=== PATIENT | male | born 1995 | race Caucasian/White ===

== ENCOUNTER 2018-10-31 18:08 | Emergency (ER) | payer SELFPAY ==
[2018-10-31] MEDS ORDERED: Fluorescein 0.6 MG Ophth Strip EYELF ONE (19:16)
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
== END 2018-10-31 20:35 | disposition home or self-care (01) ==
LOC: JD.ED 18:08
DX: S05.02XA Injury of conjunctiva and corneal abrasion without foreign body, left eye, initial encounter (principal); X58.XXXA Exposure to other specified factors, initial encounter
CPT/HCPCS: 65222; 99283

== ENCOUNTER 2018-12-22 22:37 | Emergency (ER) | payer SELFPAY ==
[2018-12-22] MEDS ORDERED: Proparacaine 0.5% Ophth Soln 15 ML Bottle EYEBOTH ONE (22:48)
[2018-12-22] MEDS ORDERED: Fluorescein 0.6 MG Ophth Strip EYEBOTH ONE (22:49)
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
[2018-12-22] MEDS ORDERED: Ciprofloxacin 0.3% Ophth Soln 5 ML Bottle EYEBOTH ONE (23:15)
[2018-12-22] MEDS ORDERED: Acetaminophen/HYDROcodone 325-5 MG Tab PO ONE (23:22)
== END 2018-12-22 23:31 | disposition home or self-care (01) ==
LOC: JD.ED 22:37
DX: H16.133 Photokeratitis, bilateral (principal); F17.210 Nicotine dependence, cigarettes, uncomplicated
CPT/HCPCS: 99283; A9270

== ENCOUNTER 2019-05-09 00:29 | Emergency (ER) | payer SELFPAY ==
[2019-05-09] MEDS ORDERED: Proparacaine 0.5% Ophth Soln 15 ML Bottle EYEBOTH ONE (01:12)
[2019-05-09] MEDS ORDERED: Fluorescein 1 MG Ophth Strip EYEBOTH ONE (01:14)
[2019-05-09] MEDS ORDERED: Fluorescein 1 MG Ophth Strip ONE (01:16)
[2019-05-09] MEDS ORDERED: Acetaminophen/HYDROcodone 325-5 MG Tab PO ONE (01:26)
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
[2019-05-09] MEDS ORDERED: Erythromycin Base 0.5% Ophth Oint 1 GM Tube EYEBOTH ONE (01:32)
== END 2019-05-09 01:48 | disposition home or self-care (01) ==
LOC: JD.ED 00:29
DX: H16.133 Photokeratitis, bilateral (principal); Z88.8 Allergy status to other drugs, medicaments and biological substances
CPT/HCPCS: 99283; A9270

== ENCOUNTER 2019-07-17 23:16 | Emergency (ER) | payer OTHER ==
[2019-07-17] MEDS ORDERED: Fluorescein 1 MG Ophth Strip EYEBOTH ONE (23:33)
[2019-07-17] MEDS ORDERED: Proparacaine 0.5% Ophth Soln 15 ML Bottle EYEBOTH STA (23:37)
[2019-07-17] MEDS ORDERED: Erythromycin Base 0.5% Ophth Oint 1 GM Tube EYELF STA (23:50)
[2019-07-17] MEDS ORDERED: Erythromycin Base 0.5% Ophth Oint 1 GM Tube EYERT STA (23:51)
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
== END 2019-07-18 00:05 | disposition home or self-care (01) ==
LOC: JD.ED 23:16
DX: H16.133 Photokeratitis, bilateral (principal); F17.210 Nicotine dependence, cigarettes, uncomplicated; Z88.8 Allergy status to other drugs, medicaments and biological substances; Z91.048 Other nonmedicinal substance allergy status
CPT/HCPCS: 99283; A9270

== ENCOUNTER 2020-01-01 23:26 | Emergency (ER) | payer MEDICAID, OTHER ==
--- NOTE | 2020-01-01 23:52 | EDM.PDOC ---
ED HPI GENERAL MEDICAL PROBLEM - General Chief Complaint: General Stated Complaint: LEFT SIDE INJURY Time Seen by Provider: 01/01/20 23:36 Source of Information: Reports: Patient History Limitations: Reports: No Limitations - History of Present Illness INITIAL COMMENTS - FREE TEXT/NARRATIVE: Mr. Hagan is a very pleasant 24-year-old man with no chronic medical problems, who now presents the ED with anterior left rib pain that he states was caused by falling down some stairs Wednesday night, 12/30/2019. He states that he was carrying a dresser upstairs, by himself, when his dog caused him to trip and fall. He states that he fell down about 9 steps, with the bottom 3 steps being concrete. He was not subsequently struck by the dresser. He states that pain in the area is made worse with inspiration, or with lying supine. He states that he is otherwise uninjured. No prior left rib injury. The patient states that he has had some relief by using a lidocaine patch and Tylenol. The patient denies recent fever, chills, sore throat, ear pain, nasal or sinus congestion, cough, dyspnea, chest pain, palpitations, nausea, vomiting, constipation, diarrhea, abdominal pain, urinary symptoms, recent weight gain or weight loss, recent bloody bowel movements or black bowel movements, recent joint aches, headaches, or rashes. Here in the ED, the patient is found to be hemodynamically stable, afebrile, saturating at 99% on room air. The patient does not have a PCP. Left Thoracic Pain Score (Numeric/FACES): 8 - Related Data Allergies Allergy/AdvReac Type Severity Reaction Status Date / Time citric acid Allergy Severe Facial Verified 01/01/20 23:36 Swelling diphenhydramine Allergy Severe Itching Verified 01/01/20 23:36 [From Benadryl] Home Meds: Home Meds Orphenadrine [Norflex] 1 tab PO Q12H PRN #14 tab 01/02/20 [Rx] Past Medical History Gastrointestinal History: Reports: Hemorrhoids Social & Family History - Family History Family Medical History: Noncontributory - Tobacco Use Smoking Status *Q: Current Every Day Smoker Tobacco Use Within Last Twelve Months: Vaping (nicotine) Years of Tobacco use: 10 Packs/Tins Daily: 0.1 - Caffeine Use Caffeine Use: Reports: None - Alcohol Use Alcohol Use History: No - Recreational Drug Use Recreational Drug Use: No - Living Situation & Occupation Living situation: Reports: Single, with Significant Other (Girlfriend + her daughter) Occupation: Unemployed ED ROS GENERAL - Review of Systems Review Of Systems: Comprehensive ROS is negative, except as noted in HPI. ED EXAM, GENERAL - Physical Exam Exam: See Below Exam Limited By: No Limitations General Appearance: Alert, WD/WN, No Apparent Distress Eye Exam: Bilateral Eye: EOMI, Normal Inspection Ears: Normal External Exam, Hearing Grossly Normal Nose: Normal Inspection Throat/Mouth: Normal Inspection, Normal Lips, Normal Voice, No Airway Compromise Head: Atraumatic, Normocephalic Neck: Normal Inspection, Full Range of Motion Respiratory/Chest: No Respiratory Distress, Lungs Clear, Normal Breath Sounds, No Accessory Muscle Use, Other (No visible abnormality to the area of pain on the left anterior ribs, such as swelling, erythema, ecchymosis, or abrasion, however, the patient has considerable tenderness to palpation in that area). No : Decreased Breath Sounds, Crackles, Rhonchi, Wheezing, Stridor, Pleural Rub, Prolonged Expiration Cardiovascular: Normal Peripheral Pulses, Regular Rate, Rhythm, No Edema, No Gallop, No JVD, No Murmur, No Rub Peripheral Pulses: 4+: Radial (L), Radial (R) GI/Abdominal: Normal Bowel Sounds, Soft, Non-Tender, No Organomegaly, No Distention, No Abnormal Bruit, No Mass (Male) Exam: Deferred Rectal (Males) Exam: Deferred Back Exam: Normal Inspection, Full Range of Motion, NT Extremities: Normal Inspection, Normal Range of Motion, No Pedal Edema, Normal Capillary Refill Neurological: Alert, Oriented, Normal Cognition, No Motor/Sensory Deficits Psychiatric: Normal Affect Skin Exam: Warm, Dry, Intact, Normal Color, No Rash Course - Vital Signs Last Recorded V/S: Last Vital Signs Temp 36.8 C 01/01/20 23:34 Pulse 100 01/01/20 23:34 Resp 16 01/01/20 23:34 BP 135/84 01/01/20 23:34 Pulse Ox 99 01/01/20 23:34 - Orders/Labs/Meds Orders: Active Orders 24 hr Category Date Time Status Chest 2V [CR] Stat Exams 01/01/20 23:46 Ordered Meds: Medications Discontinued Medications Generic Name Dose Route Start Last Admin Trade Name Jordanq PRN Reason Stop Dose Admin Ibuprofen 600 mg 01/02/20 00:04 Motrin PO 01/02/20 00:05 ONETIME ONE Orphenadrine Citrate 100 mg 01/02/20 00:02 Norflex PO 01/02/20 00:03 ONETIME STA - Re-Assessments/Exams Free Text/Narrative Re-Assessment/Exam: 01/01/20 23:47 I have ordered a chest x-ray to evaluate for evidence of rib fractures, including a hemothorax or pneumothorax. 01/02/20 00:01 Two-view chest radiograph appears to be grossly normal. The cardiac silhouette is within normal limits. No pulmonary vascular congestion. No pleural effusions. No focal infiltrate. No pneumothorax. Formal read per the Radiologist pending. 01/02/20 00:04 X-ray results discussed with the patient. Although there is no visible abnormality, I suspect that the patient contused his left ribs, and may have an underlying muscle spasm. I am therefore recommending that we start him on Norflex, along with [id number] ibuprofen. He can safely be discharged home. Departure - Departure Time of Disposition: 00:05 Disposition: Home, Self-Care 01 Condition: Good Clinical Impression: Contusion of rib on left side - Discharge Information *PRESCRIPTION DRUG MONITORING PROGRAM REVIEWED*: Not Applicable *COPY OF PRESCRIPTION DRUG MONITORING REPORT IN PATIENT ELISSA: Not Applicable Prescriptions: Orphenadrine [Norflex] 1 tab PO Q12H PRN #14 tab PRN Reason: Muscle Spasm Referrals: PCP,None [Primary Care Provider] - Forms: ED Department Discharge Additional Instructions: You were seen in the emergency room after falling down some steps on Wednesday night, injuring your left ribs. Work-up in the ER included a chest x-ray, which returned normal. No broken ribs , collapsed lung, or blood in your chest was found. Based on your history, physical exam, and ER chest x-ray results, you have most likely contused (bruised) your left ribs. You may also have a muscle spasm in the area. You have been started on the muscle relaxant Norflex, and a prescription for Norflex has been sent to the [facility] at [address] [place] [address] in [place]. Take 1 tablet of Norflex every 12 hours, as needed for rib pain, as prescribed. Norflex works well with ibuprofen. Take 3 tablets (600 mg) of [id number] ibuprofen up to every 8 hours, with food, as needed for discomfort. If any other problems, please do not hesitate to return to the ER. Sepsis Event Note - Evaluation Sepsis Screening Result: No Definite Risk - Focused Exam Vital Signs: Vital Signs Temp Pulse Resp BP Pulse Ox 01/01/20 23:34 36.8 C 100 16 135/84 99 Date Exam was Performed: 01/02/20 Time Exam was Performed: 00:12 - My Orders Last 24 Hours: My Active Orders 01/01/20 23:46 Chest 2V [CR] Stat - Assessment/Plan Last 24 Hours: My Active Orders 01/01/20 23:46 Chest 2V [CR] Stat
[2020-01-02] MEDS ORDERED: Orphenadrine 100 MG Tab.ER PO STA (00:02)
[2020-01-02] MEDS ORDERED: Ibuprofen 600 MG Tab PO ONE (00:04)
--- NOTE | 2020-01-02 05:33 | CR ---
Chest: 2 views of the chest were obtained. Comparison: No previous chest imaging. Heart size and mediastinum are normal. Lungs are clear with no acute parenchymal change. Bony structures are unremarkable. Impression: 1. Nothing acute is seen on 2 view chest x-ray. Diagnostic code #1 This report was dictated in MDT
== END 2020-01-02 00:20 | disposition home or self-care (01) ==
LOC: JD.ED 23:26
DX: S20.212A Contusion of left front wall of thorax, initial encounter (principal); F17.210 Nicotine dependence, cigarettes, uncomplicated; Z88.8 Allergy status to other drugs, medicaments and biological substances; W10.8XXA Fall (on) (from) other stairs and steps, initial encounter
CPT/HCPCS: 71046; 99283; A9270

== ENCOUNTER 2020-02-15 15:06 | Emergency (ER) | payer SELFPAY ==
--- NOTE | 2020-02-15 15:34 | EDM.PDOC ---
ED HPI GENERAL MEDICAL PROBLEM - General Chief Complaint: General Stated Complaint: HEMORROIDS Time Seen by Provider: 02/15/20 15:24 - History of Present Illness INITIAL COMMENTS - FREE TEXT/NARRATIVE: 24-year-old male presents the emergency room with a hemorrhoid. Patient states is been going on for the last several days. Interestingly he had very loose stools for several days prior to and during the onset of this. He has significant discomfort with this. He has difficulty with walking and sitting he does okay if he can sit to the side. He is used ibuprofen with minimal success with this. Prior to the watery stools the patient denies any hard stools or symptoms consistent with constipation. Rectal Pain Score (Numeric/FACES): 7 - Related Data Allergies Allergy/AdvReac Type Severity Reaction Status Date / Time citric acid Allergy Severe Facial Verified 01/01/20 23:36 Swelling diphenhydramine Allergy Severe Itching Verified 01/01/20 23:36 [From Benadryl] Home Meds: Home Meds Hydrocortisone [Anusol-HC] 30 gm RC ASDIRECTED #1 cream..g. 02/15/20 [Rx] Naproxen 500 mg PO Q12H #20 tablet 02/15/20 [Rx] Past Medical History - Past Health History Medical/Surgical History: Denies Medical/Surgical History HEENT History: Reports: Other (See Below) Other HEENT History: keratitis Gastrointestinal History: Reports: Hemorrhoids Social & Family History - Family History Family Medical History: Noncontributory - Caffeine Use Caffeine Use: Reports: None - Living Situation & Occupation Living situation: Reports: Single, with Significant Other (Girlfriend + her daughter) Occupation: Unemployed ED ROS GENERAL - Review of Systems Review Of Systems: See Below Constitutional: Reports: No Symptoms. Denies: Fever, Chills Respiratory: Reports: No Symptoms Cardiovascular: Reports: No Symptoms GI/Abdominal: Reports: Diarrhea (He had loose stools but no more than a couple a day. This was nonbloody.). Denies: Abdominal Pain, Black Stool, Bloody Stool, Constipation, Nausea, Vomiting ED EXAM, GENERAL - Physical Exam Exam: See Below Exam Limited By: No Limitations General Appearance: Alert, No Apparent Distress Respiratory/Chest: No Respiratory Distress, Lungs Clear, Normal Breath Sounds Cardiovascular: Regular Rate, Rhythm, No Edema, No Murmur GI/Abdominal: Normal Bowel Sounds, Soft, Non-Tender, No Organomegaly, No Distention Rectal (Males) Exam: Other (Has a single hemorrhoid external noted at the 4:30 position roughly 4-5 mm round very tender with palpation.) Neurological: Alert, Oriented, Normal Cognition Course - Vital Signs Last Recorded V/S: Last Vital Signs Temp 36.7 C 02/15/20 15:27 Pulse 84 02/15/20 15:27 Resp 20 02/15/20 15:27 BP 122/74 02/15/20 15: Pulse Ox 99 02/15/20 15:27 Departure - Departure Time of Disposition: 15:58 Disposition: Home, Self-Care 01 Clinical Impression: External hemorrhoid - Discharge Information Referrals: PCP,None [Primary Care Provider] - Forms: ED Department Discharge Additional Instructions: Return to the emergency room with any questions problems or worsening symptoms. Take the medications as directed and as we discussed the Naprosyn is take 1 with your morning meal and 1 with your evening meal. The hemorrhoid cream has a steroid in it use it at least 2 not more than 3 times a day for 7 to 10 days. Follow-up in the hospital clinic early this next week for recheck. Call to schedule an appointment [phone] Sepsis Event Note (ED) - Focused Exam Vital Signs: Vital Signs Temp Pulse Resp BP Pulse Ox 02/15/20 15:27 36.7 C 84 20 122/74 99
== END 2020-02-15 16:17 | disposition home or self-care (01) ==
LOC: JD.ED 15:06
DX: K64.4 Residual hemorrhoidal skin tags (principal); Z88.8 Allergy status to other drugs, medicaments and biological substances; Z91.018 Allergy to other foods
CPT/HCPCS: 99283

== ENCOUNTER 2020-03-09 11:02 | Emergency (ER) | payer MEDICAID ==
[2020-03-09] MEDS ORDERED: HYDROmorphone 1 MG/ML Syringe IVPUSH STA (11:18)
[2020-03-09] MEDS ORDERED: Ondansetron 4 MG/2 ML SDV IVPUSH ONE (11:18)
[2020-03-09] MEDS ORDERED: Sodium Chloride 0.9% 1,000 ML IV ONE (11:19)
[2020-03-09] MEDS ORDERED: Sodium Chloride 0.9% 10 ML Syringe FLUSH PRN ×2 (11:20→11:43)
--- NOTE | 2020-03-09 11:37 | EDM.PDOC ---
ED HPI GENERAL MEDICAL PROBLEM - General Chief Complaint: Flank Pain Stated Complaint: [facility] Time Seen by Provider: 03/09/20 11:18 Source of Information: Reports: Patient, RN Notes Reviewed History Limitations: Reports: No Limitations - History of Present Illness INITIAL COMMENTS - FREE TEXT/NARRATIVE: Patient is a 24-year-old male who is brought in by [place] [facility] for the evaluation of his bilateral abdomen pain. Patient states that he was woke up in the middle the night last night, as he felt like he had to pee, so he went to the bathroom, urinated, when he felt like he had the urge to have a bowel movement so he sat on the toilet, nothing happened he got up, and states that he had a very sudden sharp intense pain in the right flank/right lower quadrant area of his abdomen. Patient states that ever since then, there is been a very tight pressure feeling like someone is putting his abdomen in a vice. He states he has never felt pain like this before. He is tried Advil and Tylenol for pain management but nothing seems to be helping much. He did state he also had one episode of nausea shortly before urinating with some vomiting, that was clear in color. Patient notes he drank a little bit of water and this seemed to help the nausea, he is not ate or drank anything this morning. He states he does not have any sort of history of kidney stones, he denies any fever/chills, cough/shortness of breath, any dysuria, urinary frequency, and he does not believe he has any chance of an STD. He states that he still retains his appendix. Right Flank Pain Score (Numeric/FACES): 9 - Related Data Allergies Allergy/AdvReac Type Severity Reaction Status Date / Time citric acid Allergy Severe Facial Verified 03/09/20 11:07 Swelling diphenhydramine Allergy Severe Itching Verified 03/09/20 11:07 [From Benadryl] Home Meds: Home Meds Acetaminophen/HYDROcodone [[place] 325-5 MG] 1 tab PO Q6H PRN #15 tablet 03/09/20 [Rx] Past Medical History - Past Health History Medical/Surgical History: Denies Medical/Surgical History HEENT History: Reports: Other (See Below) Other HEENT History: keratitis Gastrointestinal History: Reports: Hemorrhoids Social & Family History - Family History Family Medical History: Noncontributory - Tobacco Use Smoking Status *Q: Current Every Day Smoker Years of Tobacco use: 10 Packs/Tins Daily: 0.5 - Caffeine Use Caffeine Use: Reports: None - Recreational Drug Use Recreational Drug Use: No - Living Situation & Occupation Living situation: Reports: Single, with Significant Other (Girlfriend + her daughter) Occupation: Unemployed ED ROS GENERAL - Review of Systems Review Of Systems: Comprehensive ROS is negative, except as noted in HPI. ED EXAM, GI/ABD - Physical Exam Exam: See Below Exam Limited By: No Limitations General Appearance: Alert, WD/WN, No Apparent Distress Eyes: Bilateral: Normal Appearance Respiratory/Chest: No Respiratory Distress, Lungs Clear, Normal Breath Sounds, No Accessory Muscle Use, Chest Non-Tender Cardiovascular: Normal Peripheral Pulses, Regular Rate, Rhythm, No Murmur GI/Abdominal Exam: Normal Bowel Sounds, Soft, Non-Tender (Patient is nontender with palpation, he states however there is a deep burning ache, above the right iliac crest, and slightly medial towards his abdomen.), No Distention, No Mass Extremities: Normal Inspection, Normal Capillary Refill Neurological: Alert, Oriented, Normal Cognition, No Motor/Sensory Deficits Psychiatric: Normal Affect, Normal Mood Skin Exam: Warm, Dry, Intact, Normal Color, No Rash Course - Vital Signs Last Recorded V/S: Last Vital Signs Temp 98.1 F 03/09/20 11:04 Pulse 60 03/09/20 11:04 Resp 16 03/09/20 11:04 BP 150/108 H 03/09/20 11:04 Pulse Ox 95 03/09/20 11:04 - Orders/Labs/Meds Orders: Active Orders 24 hr Category Date Time Status Peripheral IV Care [RC] . DIRECTED Care 03/09/20 11:21 Ordered Abdomen Pelvis w Cont [CT] Stat Exams 03/09/20 11:28 Ordered Magnesium Sulfate/Water [Magnesium Sulfate in Water Med 03/09/20 12:55 Ordered Premix] 2 gm Premix Bag 1 bag IV ONETIME Sodium Chloride 0.9% [Saline Flush] Med 03/09/20 11:20 Ordered 10 ml FLUSH ASDIRECTED PRN Sodium Chloride 0.9% [Saline Flush] Med 03/09/20 11:43 Active 10 ml FLUSH ONETIME PRN Peripheral IV Insertion Adult [OM.PC] Stat Oth 03/09/20 11:21 Ordered Medication Orders Magnesium Sulfate 2 gm/ Premix 50 mls @ 25 mls/hr IV ONETIME ONE Stop: 03/09/20 14:54 Last Admin: 03/09/20 13:14 Dose: 25 mls/hr Documented by: ALYSSA Sodium Chloride (Saline Flush) 10 ml FLUSH ASDIRECTED PRN PRN Reason: Keep Vein Open Last Admin: 03/09/20 11:36 Dose: 10 ml Documented by: ALYSSA Sodium Chloride (Saline Flush) 10 ml FLUSH ONETIME PRN PRN Reason: IV FLUSH Last Admin: 03/09/20 13:05 Dose: 10 ml Documented by: CANDACE Labs: Laboratory Tests 03/09/20 03/09/20 03/09/20 Range/Units 11:00 11:00 11:50 WBC 11.75 H (4.23-9.07) K/mm3 RBC 5.19 (4.63-6.08) M/mm3 Hgb 15.2 (13.7-17.5) gm/dl Hct 44.5 (40.1-51.0) % MCV 85.7 (79.0-92.2) fl MCH 29.3 (25.7-32.2) pg MCHC 34.2 (32.2-35.5) g/dl RDW Std Deviation 39.8 (35.1-43.9) fL Plt Count 217 (163-337) K/mm3 MPV 12.5 H (9.4-12.3) fl Neut % (Auto) 52.8 (34.0-67.9) % Lymph % (Auto) 37.6 (21.8-53.1) % Wheeler % (Auto) 7.7 (5.3-12.2) % Eos % (Auto) 1.1 (0.8-7.0) Baso % (Auto) 0.5 (0.1-1.2) % Neut # (Auto) 6.21 H (1.78-5.38) K/mm3 Lymph # (Auto) 4.42 H (1.32-3.57) K/mm3 Wheeler # (Auto) 0.90 H (0.30-0.82) K/mm3 Eos # (Auto) 0.13 (0.04-0.54) K/mm3 Baso # (Auto) 0.06 (0.01-0.08) K/mm3 Sodium 142 (136-145) mEq/L Potassium 3.8 (3.5-5.1) mEq/L Chloride 105 (98-107) mEq/L Carbon Dioxide 24 (21-32) mEq/L Anion Gap 16.8 H (5-15) BUN 14 (7-18) mg/dL Creatinine 1.0 (0.7-1.3) mg/dL Est Cr Clr Drug Dosing 97.38 mL/min Estimated GFR (MDRD) > 60 (>60) mL/min BUN/Creatinine Ratio 14.0 (14-18) Glucose 140 H (74-106) mg/dL Calcium 8.3 L (8.5-10.1) mg/dL Magnesium 1.5 L (1.8-2.4) mg/dl Total Bilirubin 0.6 (0.2-1.0) mg/dL AST 14 L (15-37) U/L ALT 32 (16-63) U/L Alkaline Phosphatase 78 (46-116) U/L C-Reactive Protein <0.2 (<1.0) mg/dL Total Protein 7.4 (6.4-8.2) g/dl Albumin 4.2 (3.4-5.0) g/dl Globulin 3.2 gm/dL Albumin/Globulin Ratio 1.3 (1-2) Urine Color (Yellow) Urine Appearance (Clear) Urine pH (5.0-8.0) Ur Specific [place] (1.005-1.030) Urine Protein (Negative) Urine Glucose (UA) (Negative) Urine Ketones (Negative) Urine Occult Blood (Negative) Urine Nitrite (Negative) Urine Bilirubin (Negative) Urine Urobilinogen (0.2-1.0) Ur Leukocyte Esterase (Negative) Urine RBC (0-5) /hpf Urine WBC (0-5) /hpf Ur Epithelial Cells (0-5) /hpf Urine Bacteria (FEW) /hpf Urine Mucus (FEW) /hpf 03/09/20 Range/Units 12:40 WBC (4.23-9.07) K/mm3 RBC (4.63-6.08) M/mm3 Hgb (13.7-17.5) gm/dl Hct (40.1-51.0) % MCV (79.0-92.2) fl MCH (25.7-32.2) pg MCHC (32.2-35.5) g/dl RDW Std Deviation (35.1-43.9) fL Plt Count (163-337) K/mm3 MPV (9.4-12.3) fl Neut % (Auto) (34.0-67.9) % Lymph % (Auto) (21.8-53.1) % Wheeler % (Auto) (5.3-12.2) % Eos % (Auto) (0.8-7.0) Baso % (Auto) (0.1-1.2) % Neut # (Auto) (1.78-5.38) K/mm3 Lymph # (Auto) (1.32-3.57) K/mm3 Wheeler # (Auto) (0.30-0.82) K/mm3 Eos # (Auto) (0.04-0.54) K/mm3 Baso # (Auto) (0.01-0.08) K/mm3 Sodium (136-145) mEq/L Potassium (3.5-5.1) mEq/L Chloride (98-107) mEq/L Carbon Dioxide (21-32) mEq/L Anion Gap (5-15) BUN (7-18) mg/dL Creatinine (0.7-1.3) mg/dL Est Cr Clr Drug Dosing mL/min Estimated GFR (MDRD) (>60) mL/min BUN/Creatinine Ratio (14-18) Glucose (74-106) mg/dL Calcium (8.5-10.1) mg/dL Magnesium (1.8-2.4) mg/dl Total Bilirubin (0.2-1.0) mg/dL AST (15-37) U/L ALT (16-63) U/L Alkaline Phosphatase (46-116) U/L C-Reactive Protein (<1.0) mg/dL Total Protein (6.4-8.2) g/dl Albumin (3.4-5.0) g/dl Globulin gm/dL Albumin/Globulin Ratio (1-2) Urine Color Yellow (Yellow) Urine Appearance Clear (Clear) Urine pH 7.0 (5.0-8.0) Ur Specific [place] 1.025 (1.005-1.030) Urine Protein Negative (Negative) Urine Glucose (UA) Negative (Negative) Urine Ketones Negative (Negative) Urine Occult Blood 3+ H (Negative) Urine Nitrite Negative (Negative) Urine Bilirubin Negative (Negative) Urine Urobilinogen 0.2 (0.2-1.0) Ur Leukocyte Esterase Negative (Negative) Urine RBC 30-40 H (0-5) /hpf Urine WBC Not seen (0-5) /hpf Ur Epithelial Cells Not seen (0-5) /hpf Urine Bacteria Few (FEW) /hpf Urine Mucus Moderate H (FEW) /hpf Meds: Medications Generic Name Dose Route Start Last Admin Trade Name Freq PRN Reason Stop Dose Admin Magnesium Sulfate 2 gm/ Premix 50 mls @ 25 mls/hr 03/09/20 12:55 03/09/20 13:14 IV 03/09/20 14:54 25 mls/hr ONETIME ONE Administration Sodium Chloride 10 ml 03/09/20 11:20 03/09/20 11:36 Saline Flush FLUSH 10 ml ASDIRECTED PRN Administration Keep Vein Open Sodium Chloride 10 ml 03/09/20 11:43 03/09/20 13:05 Saline Flush FLUSH 10 ml ONETIME PRN Administration IV FLUSH Discontinued Medications Generic Name Dose Route Start Last Admin Trade Name Freq PRN Reason Stop Dose Admin Diatrizoate Meglum/Diatrizoate Sod 120 ml 03/09/20 11:43 03/09/20 13:05 Gastrografin 37% PO 03/09/20 11:44 90 ml ONETIME ONE Administration Hydromorphone HCl 1 mg 03/09/20 11:18 03/09/20 11:36 Dilaudid IVPUSH 03/09/20 11:19 1 mg ONETIME STA Administration Sodium Chloride 1,000 mls @ 999 mls/hr 03/09/20 11:19 03/09/20 11:37 Normal Saline IV 03/09/20 12:19 999 mls/hr ASDIRECTED ONE Administration Iopamidol 100 ml 03/09/20 11:43 03/09/20 13:05 Isovue-300 (61%) IVPUSH 03/09/20 11:44 100 ml ONETIME ONE Administration Ondansetron HCl 4 mg 03/09/20 11:18 03/09/20 11:36 Zofran IVPUSH 03/09/20 11:19 4 mg ONETIME ONE Administration - Re-Assessments/Exams Free Text/Narrative Re-Assessment/Exam: 03/09/20 11:37 Patient presents to the ED for evaluation of his abdomen pain. Have ordered basic labs, IV to be placed with fluids, Dilaudid, Zofran, abdomen pelvis CT with oral and IV contrast to be performed for further evaluation. 03/09/20 12:55 Patient's white blood cell count comes back mildly elevated 11.75, with no discernible left shift on the auto differential. No bands were seen. Metabolic panel demonstrates a mildly low magnesium of 1.5, CRP is undetectably low. Otherwise metabolic panel and other labs are unremarkable. Will give the patient 2 g of magnesium IV while he is here for supplementation. 03/09/20 13:[address] has been done, I do appreciate a kidney stone within the proximal right ureter, official radiology read is pending at this time. No sign of pyelonephritis. Urine also does correlate blood in the urine suggestive of kidney stone causing the patient's pain. Will await official radiology read to rule out any other abdominal etiology. But likely this is just a kidney stone causing issues. 03/09/20 14:02 CT demonstrates a 3mm kidney stone with the proximal right ureter with hydr onephrosis. There are other nonobstructing stones within the left kidney measuring up to 2 mm. A normal appendix was identified. Departure - Departure Time of Disposition: 14:12 Disposition: Home, Self-Care 01 Condition: Good Clinical Impression: Kidney stone on right side - Discharge Information *PRESCRIPTION DRUG MONITORING PROGRAM REVIEWED*: Yes *COPY OF PRESCRIPTION DRUG MONITORING REPORT IN PATIENT ELISSA: No Instructions: Kidney Stones, [id number], Dietary Guidelines to Help Prevent Kidney Stones Referrals: PCP,Unknown [Primary Care Provider] - Forms: ED Department Discharge Additional Instructions: You were evaluated in the ER today for your right flank pain. Your urinalysis did demonstrate some blood in urine, which is suggestive of a kidney stone at this time. A CT was done at this ER visit, this demonstrated a 3mm stone within your right ureter. You have been given a strainer, please use every time you use the bathroom to make sure that the kidney stone has passed. Recommend that you increase your oral fluid intake to try to help the stone pass. You have been given a few tablets of pain medication, please take as prescribed. These medications are highly addictive, please take as few as you need to. These medications also may cause constipation, please take a stool softener like MiraLAX while taking these medications. You may also utilize 600 mg ibuprofen every 6 hours as needed for further pain relief. Do not exceed 3200 mg ibuprofen in a 24-hour time span. If your pain is not much better in a week's time, you may need to follow up with your primary care physician, for a possible urology referral. Please return to the ED if your symptoms change or worsen. Sepsis Event Note (ED) - Evaluation Sepsis Screening Result: No Definite Risk - Focused Exam Vital Signs: Vital Signs Temp Pulse Resp BP Pulse Ox 03/09/20 11:04 98.1 F 60 16 150/108 H 95 - My Orders Last 24 Hours: My Active Orders 03/09/20 11:20 Sodium Chloride 0.9% [Saline Flush] 10 ml FLUSH ASDIRECTED PRN 03/09/20 11:21 Peripheral IV Care [RC] . DIRECTED Peripheral IV Insertion Adult [OM.PC] Stat 03/09/20 11:28 Abdomen Pelvis w Cont [CT] Stat 03/09/20 11:43 Sodium Chloride 0.9% [Saline Flush] 10 ml FLUSH ONETIME PRN 03/09/20 12:55 Magnesium Sulfate/Water [Magnesium Sulfate in Water Premix] 2 gm Premix Bag 1 bag IV ONETIME - Assessment/Plan Last 24 Hours: My Active Orders 03/09/20 11:20 Sodium Chloride 0.9% [Saline Flush] 10 ml FLUSH ASDIRECTED PRN 03/09/20 11:21 Peripheral IV Care [RC] . DIRECTED Peripheral IV Insertion Adult [OM.PC] Stat 03/09/20 11:28 Abdomen Pelvis w Cont [CT] Stat 03/09/20 11:43 Sodium Chloride 0.9% [Saline Flush] 10 ml FLUSH ONETIME PRN 03/09/20 12:55 Magnesium Sulfate/Water [Magnesium Sulfate in Water Premix] 2 gm Premix Bag 1 bag IV ONETIME
[2020-03-09] MEDS ORDERED: Diatrizoate Meglumine/Diatrizoate Sodium 37% 120 ML Bottle PO ONE (11:43)
[2020-03-09] MEDS ORDERED: Iopamidol 612 MG/ML 100 ML Bottle IVPUSH ONE (11:43)
[2020-03-09] MEDS ORDERED: Magnesium Sulfate/Water 2 GM in Premix Bag 1 BAG IV ONE (12:55)
--- NOTE | 2020-03-10 10:22 | CT ---
CT abdomen and pelvis Technique: Multiple axial sections were obtained from above the dome of the diaphragm inferiorly through the pubic symphysis. Intravenous and oral contrast was utilized. Delayed images were also obtained through the bladder. Comparison: No previous study. Findings: Visualized lung bases show nothing acute. Liver contains no focal parenchymal abnormality. Spleen appears within normal limits. Small hiatal hernia is noted. Adrenal glands show no nodule. Right kidney shows slight diminished perfusion as compared to the left kidney. These findings are caused by a small obstructing stone within the proximal right ureter measuring approximately 3-4 mm. No other ureteral calculi are seen. Ureteral stone causes proximal mild hydronephrosis. Several small nonobstructing calculi are noted inferiorly within the left kidney. Pancreas shows no discrete abnormality. Aorta shows no aneurysm. Gallbladder contains no calcified gallstones. No retroperitoneal adenopathy or mesenteric abnormalities are appreciated. Appendix is visualized and is normal in size. No pelvic mass or adenopathy is seen. Delayed images shows contrast within the distal ureters and within the bladder. Bone window settings were reviewed which shows no acute osseous finding. Impression: 1. 3-4 millimeter obstructing stone within the proximal right ureter causing slight decreased enhancement of the right kidney as compared to the left kidney. 2. Several small nonobstructing calculi within the inferior left kidney. 3. No other acute abnormality is appreciated on CT study of the abdomen and pelvis. Diagnostic code #3 This report was dictated in MDT I agree with preliminary report from [facility], finalized on 03/09/20, 2:47 PM Central Daylight Time
== END 2020-03-09 14:29 | disposition home or self-care (01) ==
LOC: JD.ED 11:02
DX: N13.2 Hydronephrosis with renal and ureteral calculous obstruction (principal); F17.210 Nicotine dependence, cigarettes, uncomplicated; E83.42 Hypomagnesemia; Z91.018 Allergy to other foods; Z88.8 Allergy status to other drugs, medicaments and biological substances
CPT/HCPCS: 36415; 74177; 80053; 81001; 83735; 85025; 86140; 96361; 96365; 96375; 99284; J1170; J2405; J3475; J7030; Q9963; Q9967; 99283

== ENCOUNTER 2020-03-13 11:02 | Emergency (ER) | payer MEDICAID ==
[2020-03-13] MEDS ORDERED: HYDROmorphone 1 MG/ML Syringe IM ONE (11:36)
[2020-03-13] MEDS ORDERED: Ondansetron 4 MG Tab.DIS PO ONE (11:36)
[2020-03-13] MEDS ORDERED: Ketorolac 60 MG/2 ML SDV IM ONE (11:36)
--- NOTE | 2020-03-13 12:52 | EDM.PDOC ---
ED HPI GENERAL MEDICAL PROBLEM - General Chief Complaint: Flank Pain Stated Complaint: KIDNEY STONE Time Seen by Provider: 03/13/20 11:26 Source of Information: Reports: Patient History Limitations: Reports: No Limitations - History of Present Illness INITIAL COMMENTS - FREE TEXT/NARRATIVE: The patient presents with abdominal pain, nausea and vomiting. He was recently diagnosed with a kidney stone on the right side a couple days ago. He has not passed the stone yet. He has been vomiting. He says the hydrocodone makes him itch. Onset: Sudden Duration: Day(s): Location: Reports: Abdomen Quality: Reports: Sharp Severity: Severe Improves with: Reports: None Worsens with: Reports: None Associated Symptoms: Reports: Nausea/Vomiting. Denies: Chest Pain, Cough, Fever/Chills, Headaches, Shortness of Breath Left Flank Pain Score (Numeric/FACES): 7 - Related Data Allergies Allergy/AdvReac Type Severity Reaction Status Date / Time citric acid Allergy Severe Facial Verified 03/13/20 11:31 Swelling diphenhydramine Allergy Severe Itching Verified 03/13/20 11:31 [From Benadryl] Home Meds: Home Meds Acetaminophen/HYDROcodone [[place] 325-5 MG] 1 tab PO Q6H PRN #15 tablet 03/09/20 [Rx] Ondansetron [Zofran ODT] 4 mg PO Q6H PRN #20 tab.dis 03/13/20 [Rx] Tamsulosin HCl [Flomax] 0.4 mg PO DAILY #7 cap.er.24h 03/13/20 [Rx] traMADol [Ultram] 50 - 100 mg PO Q6H PRN #20 tab 03/13/20 [Rx] Past Medical History - Past Health History Medical/Surgical History: Denies Medical/Surgical History HEENT History: Reports: Other (See Below) Other HEENT History: keratitis Gastrointestinal History: Reports: Hemorrhoids Genitourinary History: Reports: Renal Calculus Social & Family History - Family History Family Medical History: Noncontributory - Tobacco Use Smoking Status *Q: Unknown Ever Smoked - Caffeine Use Caffeine Use: Reports: None - Living Situation & Occupation Living situation: Reports: Single, with Significant Other (Girlfriend + her daughter) Occupation: Unemployed ED ROS GENERAL - Review of Systems Review Of Systems: See Below Constitutional: Reports: No Symptoms HEENT: Reports: No Symptoms Respiratory: Reports: No Symptoms Cardiovascular: Reports: No Symptoms Endocrine: Reports: No Symptoms GI/Abdominal: Reports: Abdominal Pain, Nausea, Vomiting : Reports: No Symptoms Musculoskeletal: Reports: No Symptoms ED EXAM, GI/ABD - Physical Exam Exam: See Below Exam Limited By: No Limitations General Appearance: Alert, No Apparent Distress Ears: Normal External Exam Nose: Normal Inspection Head: Atraumatic, Normocephalic Neck: Normal Inspection Respiratory/Chest: No Respiratory Distress, Lungs Clear, Normal Breath Sounds Cardiovascular: Regular Rate, Rhythm, No Edema, No Murmur GI/Abdominal Exam: Soft, No Organomegaly, Tender (Mild right sided abdominal pain) Course - Vital Signs Last Recorded V/S: Last Vital Signs Temp 98.7 F 03/13/20 11:29 Pulse 70 03/13/20 11:29 Resp 16 03/13/20 11:29 BP 129/92 H 03/13/20 11:29 Pulse Ox 100 03/13/20 11:29 - Orders/Labs/Meds Meds: Medications Discontinued Medications Generic Name Dose Route Start Last Admin Trade Name Matthew PRN Reason Stop Dose Admin Hydromorphone HCl 1 mg 03/13/20 11:36 03/13/20 11:59 Dilaudid IM 03/13/20 11:37 1 mg ONETIME ONE Administration Ketorolac Tromethamine 60 mg 03/13/20 11:36 03/13/20 11:59 Toradol IM 03/13/20 11:37 60 mg ONETIME ONE Administration Ondansetron HCl 4 mg 03/13/20 11:36 03/13/20 11:59 Zofran Odt PO 03/13/20 11:37 4 mg ONETIME ONE Administration - Re-Assessments/Exams Free Text/Narrative Re-Assessment/Exam: 03/13/20 12:48 I ordered dilaudid 1mg IM, toradol 60mg IM, and zofran 4mg ODT PO. Departure - Departure Time of Disposition: 12:50 Disposition: Home, Self-Care 01 Condition: Good Clinical Impression: Kidney stone on right side - Discharge Information *PRESCRIPTION DRUG MONITORING PROGRAM REVIEWED*: Not Applicable *COPY OF PRESCRIPTION DRUG MONITORING REPORT IN PATIENT ELISSA: Not Applicable Prescriptions: Tamsulosin HCl [Flomax] 0.4 mg PO DAILY #7 cap.er.24h traMADol [Ultram] 50 - 100 mg PO Q6H PRN #20 tab PRN Reason: Pain Ondansetron [Zofran ODT] 4 mg PO Q6H PRN #20 tab.dis PRN Reason: Nausea\vomiting Referrals: PCP,None [Primary Care Provider] - Additional Instructions: Take the flomax daily. Drink plenty of fluids. Tame motrin as needed for pain. If that does not help try the ultram. Take the zofran every 6 hours as needed for nausea and vomiting. Please return if you are worse. Sepsis Event Note (ED) - Evaluation Sepsis Screening Result: No Definite Risk - Focused Exam Vital Signs: Vital Signs Temp Pulse Resp BP Pulse Ox 03/13/20 11:29 98.7 F 70 16 129/92 H 100
== END 2020-03-13 13:06 | disposition home or self-care (01) ==
LOC: JD.ED 11:02
DX: N20.0 Calculus of kidney (principal); Z91.018 Allergy to other foods; Z88.8 Allergy status to other drugs, medicaments and biological substances
CPT/HCPCS: 96372; 99283; A9270; J1170; J1885

== ENCOUNTER 2020-04-04 20:18 | Emergency (ER) | payer MEDICAID ==
[2020-04-04] MEDS ORDERED: Ciprofloxacin 0.3% Ophth Soln 5 ML Bottle EYEBOTH ONE ×2 (20:56→21:00)
[2020-04-04] MEDS ORDERED: Ketorolac 0.5% Ophth Soln 5 ML Bottle EYEBOTH SCH (21:00)
[2020-04-04] MEDS ORDERED: diphenhydrAMINE 50 MG Cap PO ONE (21:02)
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
== END 2020-04-04 21:12 | disposition home or self-care (01) ==
LOC: JD.ED 20:18
DX: H16.133 Photokeratitis, bilateral (principal); F17.210 Nicotine dependence, cigarettes, uncomplicated; Z91.018 Allergy to other foods; Z88.8 Allergy status to other drugs, medicaments and biological substances
CPT/HCPCS: 99283; A9270